=== PATIENT | female | born 1990 | race Caucasian/White ===

== ENCOUNTER 2018-09-10 11:40 | Outpatient (REF) | payer OTHER, SELFPAY ==
--- NOTE | 2018-09-10 10:00 | PAPFT_PTH ---
PATIENT: Emely Javier LOC: [facility] U#:[id number] AGE/SX: 28/F ROOM: RE09/10/[address]: SHELLI Morris : 1990 BED: DIS: 09/10/2018 SPEC #: [id number] RECD: 09/10/18 13:13 STATUS: ANUM REQ #: [id number] OLEG: 09/10/18 10:[address]: Kia Shipman DEPT: [facility] Cytology RECD BY: Aurea Dixon ENTERED: 09/10/18 13:13 SP TYPE: PAPFT OTHR DR: Maddy Licona V Tissues: 1 - CX/ENDOCX FOR PAP SMEARS Procedures: PAP THIN PREP/UVM Screening Comments: [id number] (UNSATISFACTORY FOR EVALUATION)
== END 2018-09-10 12:00 ==
LOC: LBN 11:40
PROVIDERS: PCP Family Medicine; Visit Provider Nurse Practitioner Family
DX: Z12.4 Encounter for screening for malignant neoplasm of cervix (principal)
CPT/HCPCS: 88142

== ENCOUNTER 2020-07-10 11:27 | Emergency (ER) | payer OTHER, SELFPAY ==
[2020-07-10] VITALS (39 sets, daily range): BP systolic 144–179; BP diastolic 82–112; PULSE 76–120; RESP 12–23; TEMP 36.7; O2SAT 96–100
--- NOTE | 2020-07-10 11:15 | RT.EKG_ITS ---
APPROVED REPORT Exam: Resting ECG Patient Location: E HR:87 bpm ECG Measurements Heart Rate 87 AXIS NE 129 P 40 QRSd 84 QRS 79 QT 341 T -6 QTc 411 Conclusion Sinus rhythm normal P axis Non specific t waves changes
--- NOTE | 2020-07-10 11:30 | DI.RAD_ITS ---
EXAM: XR CHEST 2V PA LATERAL CLINICAL HISTORY: Cooper pain TECHNIQUE: 2D digital imaging was performed. COMPARISON: No exams were available for comparison FINDINGS: MEDIASTINUM: Normal. HEART: Normal. PULMONARY VASCULATURE: Normal. LUNGS: Clear. Hyperinflation. PLEURAL SPACE: No pleural effusion or pneumothorax. BONE:Normal. OTHER FINDINGS:Normal. IMPRESSION: Hyperinflation. No acute pulmonary findings. DATA REPOSITORY: RADIATION DOSE DELIVERED:
[2020-07-10 11:53] LABS: Abs Immature Grans 0.05 10^3/uL (0.0-0.06); Absolute Basophil Count 0.05 10^3/uL (0.0-0.2); Absolute Eosinophil Count 0.13 10^3/uL (0.0-0.7); Absolute Lymphocyte Count 2.53 10^3/uL (1.2-3.4); Basophils % 0.4; HCT 41.9 % (36.0-46.0); HGB 13.8 g/dL (11.2-15.7); Immature Grans % 0.4; Lymphocytes % 19.5; MCH 29.5 pg (27.0-33.0); MCHC 32.9 % (32.0-36.0); MCV 89.5 fL (80-95); Monocytes % 5.6; Neutrophils % 73.1; Nucleated RBC 0 %; Platelet Count 313 10^3/uL (130-400); RBC 4.68 10^6/uL (3.93-5.22); RDW 12.9 % (11.7-14.6); RDW-SD 42.6 fL; WBC 12.96 10^3/uL (4.4-10.8)
--- NOTE | 2020-07-10 11:53 | ED.GENADUL_ITS ---
Discharge Plan Disposition Patient Disposition: HOME Condition: Improving Discharge Details Clinical Impression: Heart palpitations Primary Care Provider: Maddy Licona V ED Provider: Luis Alberto Sahu Home Meds and New Rx's Prescriptions: Continued norethindrone-e.estradiol-iron [09/08 (28)] 1 mg-20 mcg (21)/75 mg (7) tablet 1 tab PO DAILY Qty: 84 RF: 3 ibuprofen 600 MG tablet 600 mg PO Q6H PRN (Reason: Pain) Qty: 15 RF: 0 Discharge Instructions Instructions: Heart Palpitations (ED) Additional Instructions: Home to rest today. Small, frequent sips of fluids to maintain hydration. We will ask our care management team to arrange an outpatient follow-up for you in clinic. Wear the Holter monitor as instructed and then return to respiratory therapy as instructed. Return to the ER if you develop persistent chest pain, difficulty breathing, or any other acute concerns. Medical Decision Making Healthy, pleasant 30-year-old female presents with intermittent episodes of transient left-sided chest discomfort associate with palpitations over 1 week's time. She arrives to the ER afebrile, well-appearing, oxygenating 100%, mildly anxious with a pulse initially 120, blood pressure 179/112. Differential diagnosis includes benign palpitations, dehydration, electrolyte abnormality, must exclude ACS or occult PE particularly given patient's prescribed oral contraceptive and family history of clotting disorder. IV access established, fluids initiated. Patient referred for EKG, laboratory testing with urinalysis. Following fluids, pulse corrected to 90, blood pressure improved to 160/94. Labs reveal semielevated white blood cell count of 12, hematocrit 41, platelets 313. Chemistries reassuring, note of anion gap of 12, troponin negative x2, D- dimer negative at 184. Chest x-ray without acute findings. Patient remained improved. Unclear etiology of her palpitations. I will place her on a Holter monitor for 48 hours. We will ask care management to arrange outpatient follow-up for her in clinic with Dr. Licona. She is stable and improved at this time. Lab Data Lab results reviewed: Yes I reviewed the patient's lab results. Labs: Laboratory Results - last 24 hr 07/10/20 07/10/20 07/10/20 11:40 11:40 11:40 WBC 12.96 H RBC 4.68 Hgb 13.8 Hct 41.9 MCV 89.5 MCH 29.5 MCHC 32.9 RDW 12.9 Plt Count 313 MPV 9.0 Immature Gran % 0.4 Neutrophils % 73.1 Lymphocytes % 19.5 Monocytes % 5.6 Eosinophils % 1.0 Basophils % 0.4 Nucleated RBC % 0 Absolute Neutrophils 9.47 H Absolute Lymphocytes 2.53 Absolute Monocytes 0.73 Absolute Eosinophils 0.13 Absolute Basophils 0.05 PT 10.2 INR 1.0 APTT 24.5 D-Dimer 184 Sodium 138 Potassium 3.7 Chloride 102 Carbon Dioxide 23.3 Anion Gap 12.7 H BUN 11 Creatinine 0.79 Estimated GFR/1.73 m2 >= 60.00 Glucose 134 H Calcium 9.5 Magnesium 1.8 Total Bilirubin 0.3 AST 14 L ALT 18 Alkaline Phosphatase 34 L Troponin I < 0.05 Total Protein 8.8 H Albumin 4.5 TSH 0.52 HPI General Mode of arrival: ambulatory . Date/Time Provider Initiated Documentation: 07/10/20 11:28 . Limitations to Documentation: no limitations . Information obtained by: patient . History of Present Illness 30 year old F presents to the emergency department with the chief complaint of Palpitations, described as moderate, Quality is described as dull, and is localized to the chest. Patient reports no radiation. Patient started experiencing this hour(s) and it has been intermittent. No relieving factors improve symptom(s), No exacerbating factors reported . Patient notes chest pain; denies cough, fever/chills, headaches, loss of appetite, nausea/vomiting and syncope. Patient did receive the following treatments prior to arrival, none Related Data Home Medications Medication Instructions Recorded Confirmed ibuprofen 600 mg PO Q6H PRN #15 tab 09/29/16 09/10/18 norethindrone 1 mg-ethinyl 1 tab PO DAILY #84 tab 09/10/18 09/10/18 estradiol 20 mcg (21)-iron 75 mg (7) tablet Previous Rx's Medication Instructions Recorded ibuprofen 600 mg PO Q6H PRN #15 tab 09/29/16 norethindrone 1 mg-ethinyl 1 tab PO DAILY #84 tab 09/10/18 estradiol 20 mcg (21)-iron 75 mg (7) tablet Allergies Allergy/AdvReac Type Severity Reaction Status Date / Time latex Allergy yeast Verified 09/10/18 10:25 [facility] Allergy red rash Verified 09/10/18 10:25 General Stated Complaint: Palpitatns AYANA: 2 Review of Systems Narrative: On OCPs. States she believes she has a family history of factor V Leiden. Sudden early of her uncle. No travel, no weight change. Normal bowel movements. 8 systems reviewed and otherwise negative [facility] Medical History Asthma Candidiasis of vagina While IUD was in place. Resolved after IUD removed. Contraception 2009 Mirena IUD. 2013 removed. 2014 restarted OCPs. will use condoms for STI prevention. Depression Social History Smoking/Tobacco Use Status: Former Tobacco Use Smoking risk assessment performed?: Yes Alcohol Intake: current Alcohol Intake frequency: a few times a month Alcohol type: beer Drug use: Daily Substance use type: marijuana current occupation: [employer] in [place] Do you feel safe at home: Yes Do you feel safe in your relationship?: Yes History History 0 Para Hx # Term Pregnancies Multiple births Hx # Pregnancies Ectopic pregnancies AB induced Hx Number of Living Children AB spontaneous Exam Narrative Exam Narrative: GEN: awake, alert, oriented 3. Pleasant, well groomed, interactive. HEAD: Normocephalic, atraumatic ENT: Mucous membranes moist, oropharynx unremarkable, External ear exam unremarkable EYES: PERRL, EOMI NECK: Full ROM, no RANDY, no menigismus CHEST/RESP: Nontender, clear to auscultation bilateral, no wheeze/rhonchi/rales CARDIOVASCULAR: Regular and tachycardic, no murmur, rub kalie. 2+ Rad pulse bilateral ABDOMEN: Soft, nontender, no mass. +Bowel sounds EXT: Full ROM, no edema, no rash Neuro: Grossly normal neurologic exam, conversant, interactive. Psych: Speech fluent, thoughts congruent, affect slightly anxious Course Vital Signs Vital signs: Vital Signs Temperature 36.7 C 07/10/20 11:30 Pulse 120 H 07/10/20 11:30 Respiratory Rate 14 07/10/20 11:30 Blood Pressure 179/112 H 07/10/20 11:30 Pulse Oximetry 100 07/10/20 11:30 Temperature 36.7 C 07/10/20 11:30 Temperature Source Temporal Artery Scan 07/10/20 11:30 Pulse 120 H 07/10/20 11:30 Respiratory Rate 14 07/10/20 11:30 Respiratory Effort Non-Labored 07/10/20 11:34 Blood Pressure 179/112 H 07/10/20 11:30 Blood Pressure Position Sitting 07/10/20 11:30 Pulse Oximetry 100 07/10/20 11:30 Oxygen Delivery Method Room Air 07/10/20 11:30 Oxygen Flow Rate 0 07/10/20 11:30 Pain Level 0 07/10/20 11:30
[2020-07-10 11:55] LABS: Absolute Monocyte Count 0.73 10^3/uL (0.1-0.8); Absolute Neutrophil Count 9.47 10^3/uL (1.2-6.7)
[2020-07-10] MEDS: Normal Saline 1,000 ML 1000 ML IV ×2 (12:00→13:00)
[2020-07-10 12:08] LABS: PTT Activated 24.5 sec (21.0-27.5); Prothrombin Time 10.2 sec (9.3-11.0)
[2020-07-10 12:15] LABS: ALT 18 U/L (14-59); AST 14 U/L (15-37); Albumin 4.5 g/dL (3.4-5.0); Alkaline Phosphatase 34 U/L (46-116); Anion Gap 12.7 mmol/L (3-11); BUN 11 mg/dL (7-18); Bilirubin, Total 0.3 mg/dL (0.2-1.0); CO2 23.3 mmol/L (21.0-32.0); CREATININE 0.79 mg/dL (0.55-1.02); Calcium 9.5 mg/dL (8.5-10.1); Chloride 102 mmol/L (98-107); Glucose 134 mg/dL (74-106); Magnesium 1.8 mg/dL (1.8-2.4); Potassium 3.7 mmol/L (3.5-5.1); Sodium 138 mmol/L (136-145); TSH 0.52 uIU/mL (0.36-3.74); Total Protein 8.8 g/dL (6.4-8.2); Troponin I < 0.05 ng/mL (<0.06)
[2020-07-10 12:24] LABS: D-Dimer 184 ng/mlFEU (<500)
--- NOTE | 2020-07-10 12:34 | DI.VRAD_ITS ---
PROCEDURE INFORMATION: Exam: XR Chest, 2 Views Exam date and time: 07/10/2020 12:28 PM Age: 30 years old Clinical indication: Chest pain and chest pressure TECHNIQUE: Imaging protocol: XR of the chest Views: 2 views. COMPARISON: No relevant prior studies available. FINDINGS: Lungs: The lungs are hyperaerated and hyperlucent. No focal infiltrates. Pleural space: Unremarkable. No pleural effusion. No pneumothorax. Heart/Mediastinum: Unremarkable. No cardiomegaly. Bones/joints: Unremarkable. IMPRESSION: Hyperaeration raises concern for reactive airway disease. Dictated and Authenticated by: Amy Hicks MD. Ordering:VINITA Sahu MD
[2020-07-10 13:09] LABS: Bilirubin Negative (Negative); Blood Small (Negative); Clarity Clear (Clear); Glucose Negative (Negative); Ketones Negative (Negative); Leukocyte Esterase Negative (Negative); Nitrite Negative (Negative); Urobilinogen 0.2 EU/dL (Up TO 0.2)
[2020-07-10 13:21] LABS: Bacteria Few HPF (Negative); C & S Indicated? No; Casts Negative LPF (Negative); Crystals Negative HPF (Negative); Epithelial Cells Few HPF (Negative); Mucus Negative (Negative); WBC 0-2 HPF (0-5)
--- NOTE | 2020-07-10 14:30 | RT.EKG_ITS ---
APPROVED REPORT Exam: Resting ECG Patient Location: E HR:88 bpm ECG Measurements Heart Rate 88 AXIS DE 154 P 56 QRSd 86 QRS 74 QT 362 T 27 QTc 439 Conclusion Sinus rhythm...normal P axis, V-rate 60- 99
--- NOTE | 2020-07-10 15:03 | NUR.NOTE ---
Referral faxed to [facility]. Dr. Licona.Nursing Note:
[2020-07-10 15:36] LABS: Troponin I < 0.05 ng/mL (<0.06)
== END 2020-07-10 15:56 | disposition home or self-care (01) ==
PROVIDERS: Emergency Provider Emergency Medicine; PCP Family Medicine
DX: R00.2 Palpitations (principal); R07.89 Other chest pain; Z83.2 Family history of diseases of the blood and blood-forming organs and certain disorders involving the immune mechanism; Z79.3 Long term (current) use of hormonal contraceptives
CPT/HCPCS: 36415; 80053; 93005; 96361; 99285; 71046; 81003; 81015; 83735; 84443; 84484; 85025; 85379; 85610; 85730; 93010; 93225

== ENCOUNTER 2020-07-10 15:10 | Outpatient (RCR) | payer OTHER, SELFPAY ==
--- NOTE | 2020-07-10 15:15 | HOLTER_ITS ---
APPROVED REPORT Exam Type: HOLTER MONITOR APPLICATION Reason for Test: PALPITATIONS Patient Location: O Conclusion This Holter monitor recorded for 28 hours and 21 minutes Rhythm throughout was sinus. Average heart rate was 92. Minimum was 64 and maximum 161 There were no atrial or ventricular dysrhythmias There was no atrial fibrillation, no pauses greater than 3 seconds, no high-grade AV block Patient reported that she had no symptoms
== END 2020-07-19 23:59 | disposition home or self-care (01) ==
LOC: RT 15:10
PROVIDERS: PCP Family Medicine; Visit Provider Emergency Medicine
DX: R00.2 Palpitations (principal)
CPT/HCPCS: 93225; 93226

== ENCOUNTER 2021-01-14 14:33 | Outpatient (CLI) | payer MEDICAID, SELFPAY ==
--- NOTE | 2021-01-14 14:15 | DI.RAD_ITS ---
Exam(s) XR HIP RT COMPLETE AP PELVIS EXAM: XR HIP RT COMPLETE AP PELVIS CLINICAL HISTORY: RT HIP PAIN, M25.551 TECHNIQUE: COMPARISON: US PELVIS TRANSVAG from 03/30/2016 FINDINGS: Two views were obtained. There is tiny ossicle adjacent to the aspect of the acetabulum the right wh ich may represent a small accessory ossicle. No other bony or soft tissue seen. IMPRESSION: RADIATION DOSE DELIVERED: Total DLP
== END 2021-01-14 14:53 ==
PROVIDERS: PCP Family Medicine; Visit Provider Physician Assistant Medical
DX: M25.551 Pain in right hip (principal)
CPT/HCPCS: 73502

== ENCOUNTER 2021-07-23 13:21 | Outpatient (REF) | payer MEDICAID, SELFPAY | END 2021-07-23 13:22 | disposition home or self-care (01) | LOC: LBN 13:21 | PROVIDERS: PCP Family Medicine; Visit Provider Nurse Practitioner Family | DX: Z11.6 Encounter for screening for other protozoal diseases and helminthiases (principal) | CPT/HCPCS: 87177 ==

== ENCOUNTER 2021-11-25 17:32 | Emergency (ER) | payer MEDICAID, SELFPAY ==
[2021-11-25 17:36] VITALS: BP 178/113; PULSE 127; RESP 18; TEMP 36.3; O2SAT 99
--- NOTE | 2021-11-25 18:29 | W.ED.GENAD ---
Discharge Plan Disposition Patient Disposition: HOME Condition: Improving Discharge Details Clinical Impression: Chronic leg pain Primary Care Provider: Maddy Licona V ED Provider: Vincenzo Dickson Home Meds and New Rx's Prescriptions: New lidocaine [Lidoderm] 5 % adhesive patch,medicated 1 patch topical DAILY PRN (Reason: pain) Qty: 3 0RF Rx Instructions: leave on most painful area for up to 12 hrs cyclobenzaprine 5 mg tablet 5 mg PO DAILY PRN (Reason: muscle spasm) Qty: 5 0RF No Action norethindrone-e.estradiol-iron [09/08 (28)] 1 mg-20 mcg (21)/75 mg (7) tablet 1 tab PO DAILY Qty: 84 3RF ibuprofen 600 MG tablet 600 mg PO Q6H PRN (Reason: Pain) Qty: 15 0RF hydroxyzine HCl 50 mg tablet 0RF Label Comments: TAKE 1/2 TO 1 TABLET BY MOUTH THREE TIMES A DAY NEEDED melatonin 10 mg tablet, sublingual 0RF Label Comments: Place 1 tablet under tongue at bedtime Discharge Instructions Instructions: Leg Pain (ED) Additional Instructions: Please see your primary care doctor as scheduled. Please return the emergency room for any worsening symptomatology. Medical Decision Making 31-year-old female presents with subacute femoral stress fracture and poorly controlled pain, has been taking consistent NSAIDs for some time, has noticed that her blood pressure has been out of control over the past several days to a week, no chest pain no shortness of breath, normal voice tolerating secretions, ambulatory for range of motion no external signs of trauma. Consider NSAID induced nephropathy versus hypertension related to pain, no evidence of anaphylaxis or allergic reaction at this time, low suspicion for any infection. Will send screening labs to assess creatinine. Will dose Percocet Lidoderm and cyclobenzaprine close reassessment and labs disposition pending results. Patient has follow-up on Sunday with primary care 20: 16 patient resting comfortably no acute distress ambulatory without assistance. Creatinine normal. Patient counseled regarding appropriate use of NSAIDs; will provide Lidoderm and cyclobenzaprine prescription. Patient has appointment on Sunday with your primary care. Given return precautions as needed. HPI General Date/Time Provider Initiated Documentation: 11/25/21 18:16. HPI Narrative: 31-year-old female stress fracture right femur subacute was given tramadol over the last week and believes that she is having allergic reaction to it wakes up feeling as if her throat is tightening or voice changes in the morning, no current voice changes throat tightness or respiratory symptoms no nausea no vomiting no presyncope. Endorse that she cannot get her pain under control. Deep tissue massage earlier today. Related Data Home Medications Medication Instructions Recorded Confirmed ibuprofen 600 mg tablet 600 mg PO Q6H PRN #15 tab 09/29/16 09/10/18 norethindrone 1 mg-ethinyl 1 tab PO DAILY #84 tab 09/10/18 09/10/18 estradiol 20 mcg (21)-iron 75 mg (7) tablet (09/08 ()) cyclobenzaprine 5 mg tablet 5 mg PO DAILY PRN #5 tab 11/25/21 hydroxyzine HCl 50 mg tablet mg 11/25/21 11/25/21 lidocaine 5 % topical patch 1 patch TOPICAL DAILY PRN #3 ea 11/25/21 (Lidoderm) melatonin 10 mg sublingual tablet mg 11/25/21 11/25/21 Previous Rx's Medication Instructions Recorded ibuprofen 600 mg tablet 600 mg PO Q6H PRN #15 tab 09/29/16 norethindrone 1 mg-ethinyl 1 tab PO DAILY #84 tab 09/10/18 estradiol 20 mcg (21)-iron 75 mg (7) tablet (09/08 ()) cyclobenzaprine 5 mg tablet 5 mg PO DAILY PRN #5 tab 11/25/21 lidocaine 5 % topical patch 1 patch TOPICAL DAILY PRN #3 ea 11/25/21 (Lidoderm) Allergies Allergy/AdvReac Type Severity Reaction Status Date / Time latex Allergy yeast Verified 11/25/21 17:42 infections nicotine [From Nicoderm [facility]] Allergy red rash Verified 11/25/21 17:42 General Stated Complaint: GenMedical AYANA: 4 Review of Systems Narrative: Review of Systems Constitutional: negative Eyes: negative ENT: negative Cardiovascular: negative Respiratory: negative Gastrointestinal: negative : negative Musculoskeletal: Leg pain Skin: negative Neurologic: negative Psych: negative PFSH All Active Problems (Updated 11/25/21 @ 20:16 by Vincenzo Dickson MD) Chronic leg pain (Acute) Depression (Acute) Contraception (Acute) 2009 Mirena IUD. 2013 removed. 2014 restarted OCPs. will use condoms for STI prevention. Asthma (Acute) Medical History Asthma Candidiasis of vagina While IUD was in place. Resolved after IUD removed. Contraception 2009 Mirena IUD. 2013 removed. 2015 restarted OCPs. will use condoms for STI prevention. Depression Social History Smoking/Tobacco Use Status: Former Tobacco Use Smoking risk assessment performed?: Yes Alcohol Intake: current Alcohol Intake frequency: a few times a month Alcohol type: beer Drug use: Daily Substance use type: marijuana current occupation: [employer] in [place] Do you feel safe at home: Yes Do you feel safe in your relationship?: Yes History History 0 Para Hx # Term Pregnancies Multiple births Hx # Pregnancies Ectopic pregnancies AB induced Hx Number of Living Children AB spontaneous Exam Narrative Exam Narrative: Physical Examination General: alert, awake, cooperative, resting comfortably, no acute distress HEENT: normocephalic, atraumatic; PERRL, EOM intact, conjunctiva normal; no nasal discharge; moist mucous membranes, oral and pharyngeal mucosa normal, tolerating secretions; normal voice no stridor Neck: supple, trachea midline; full ROM Chest: normal to inspection Respiratory: normal respiratory effort, speaking in full sentences, clear to auscultation, no wheezing, rales or rhonchi Cardiac: regular rate, regular rhythm, S1S2 intact, no murmurs rubs or gallops GI: abdomen soft, non-tender, non-distended; no palpable mass or hepatosplenomegaly Skin: no lesions, rashes or trauma appreciated Neuro: AAOx3, normal speech, moving all extremities Extremities: Range of motion intact, no external deformity, ambulatory with out assistance Psych: Appropriate mood and affect Course Vital Signs Vital signs: Vital Signs Temperature 36.3 C L 11/25/21 17:36 Pulse 127 H 11/25/21 17:36 Respiratory Rate 18 11/25/21 17:36 Blood Pressure 178/113 H 11/25/21 17:36 Pulse Oximetry 99 11/25/21 17:36 Temperature 36.3 C L 11/25/21 17:36 Temperature Source Skin 11/25/21 17:36 Pulse 127 H 11/25/21 17:36 Respiratory Rate 18 11/25/21 17:36 Respiratory Effort 11/25/21 17:43 Blood Pressure 178/113 H 11/25/21 17:36 Blood Pressure Position Supine 11/25/21 17:36 Pulse Oximetry 99 11/25/21 17:36 Oxygen Delivery Method Room Air 11/25/21 17:36 Oxygen Flow Rate 0 11/25/21 17:36 Pain Level 8 11/25/21 17:36 PAWSS Have you Been Recently Intoxicated or Drunk Within the Last 30 days?: No Have you Ever Experienced Previous Episodes of Alcohol Withdrawal?: No Have you ever Experienced Withdrawal Seizures?: No Have you ever Experienced Delirium Tremens(DT)s?: No Have you ever undergone Alcohol Rehabilitation Treatment (i.e, inpt ot outpatient treatment programs)?: No Have you ever Experienced Blackouts?: No Have you ever Combined Alcohol with other Downers within the last 90 days?: No Have you ever Combined Alcohol with any other Substance of Abuse during the last 90 days?: No Positive Blood Alcohol level on Presentation? [PCS.BAL]: No Evidence of Increased Autonomic Activity (i.e. HR>120, tremor, sweating, agitation, nausea)?: No Result: 0
[2021-11-25 19:30] VITALS: RESP 16
[2021-11-25] MEDS: Lidocaine 5% Patch 1 PATCH TP (19:39)
[2021-11-25] MEDS: Cyclobenzaprine 10 MG TAB PO (19:40)
[2021-11-25] MEDS: oxyCODONE 5 mg/Acetaminophen 325 mg TAB 1 TAB PO (19:40)
[2021-11-25] MEDS: Ondansetron O.D.T. 4 MG TABEF PO (19:40)
[2021-11-25 19:48] LABS: Abs Immature Grans 0.04 10^3/uL (0.0-0.06); Absolute Basophil Count 0.07 10^3/uL (0.0-0.2); Absolute Eosinophil Count 0.33 10^3/uL (0.0-0.7); Absolute Lymphocyte Count 3.49 10^3/uL (1.2-3.4); Absolute Monocyte Count 0.62 10^3/uL (0.1-0.8); Absolute Neutrophil Count 6.17 10^3/uL (1.2-6.7); Basophils % 0.7; Eosinophils % 3.1; HCT 38.9 % (36.0-46.0); HGB 12.8 g/dL (11.2-15.7); Immature Grans % 0.4; Lymphocytes % 32.6; MCH 29.1 pg (27.0-33.0); MCHC 32.9 % (32.0-36.0); MCV 88.4 fL (80-95); MPV 9.1 fL (8.0-11.0); Monocytes % 5.8; Neutrophils % 57.4; Nucleated RBC 0 %; Platelet Count 311 10^3/uL (130-400); RDW-SD 42.4 fL; WBC 10.72 10^3/uL (4.4-10.8)
[2021-11-25 20:10] LABS: ALT 21 U/L (14-59); AST 11 U/L (15-37); Albumin 3.9 g/dL (3.4-5.0); Alkaline Phosphatase 30 U/L (46-116); Anion Gap 7.7 mmol/L (3-11); BUN 11 mg/dL (7-18); Bilirubin, Total 0.1 mg/dL (0.2-1.0); CO2 25.3 mmol/L (21.0-32.0); CREATININE 0.7 mg/dL (0.55-1.02); Calcium 8.9 mg/dL (8.5-10.1); Chloride 104 mmol/L (98-107); Glucose 97 mg/dL (74-106); Potassium 4.2 mmol/L (3.5-5.1); Sodium 137 mmol/L (136-145); Total Protein 7.9 g/dL (6.4-8.2)
[2021-11-25 20:26] VITALS: BP 178/113; PULSE 127; RESP 16; TEMP 36.3; O2SAT 99
== END 2021-11-25 20:27 | disposition home or self-care (01) ==
PROVIDERS: Emergency Provider Emergency Medicine; PCP Family Medicine
DX: M79.604 Pain in right leg (principal); M84.351S Stress fracture, right femur, sequela; G89.29 Other chronic pain
CPT/HCPCS: 80053; 99283; 85025

== ENCOUNTER 2021-12-02 09:11 | Outpatient (REF) | payer MEDICAID, SELFPAY ==
[2021-12-02 20:11] LABS: Calculated LDL 214 mg/dL (<100); Cholesterol 291 mg/dL (<200); HDL Cholesterol 59 mg/dL (40-60); TSH 1.17 uIU/mL (0.36-3.74); Triglyceride 91 mg/dL (<150)
[2021-12-02 20:38] LABS: FREE T4 0.95 ng/dL (0.76-1.46)
[2021-12-03 22:45] LABS: T3,Free 3.7 pg/mL (2.8-5.3)
[2021-12-05 09:51] LABS: Prolactin 18.2 ng/mL (See Note)
== END 2021-12-02 09:12 | disposition home or self-care (01) ==
LOC: NCHCN 09:11
PROVIDERS: PCP Family Medicine; Visit Provider Family Medicine
DX: L65.9 Nonscarring hair loss, unspecified (principal); Z13.220 Encounter for screening for lipoid disorders; Z00.00 Encounter for general adult medical examination without abnormal findings
CPT/HCPCS: 80061; 84146; 84439; 84443; 84481

== ENCOUNTER 2021-12-12 16:08 | Outpatient (REF) | payer MEDICAID, SELFPAY ==
--- NOTE | 2021-12-12 15:30 | PAPFT_PTH ---
PATIENT: Emely Javier LOC: [facility] U#:[id number] AGE/SX: 31/F ROOM: RE12/12/[address]: SHELLI Morris : 1990 BED: DIS: 12/12/2021 SPEC #: [id number] RECD: 12/12/21 18:00 STATUS: ANUM REQ #: [id number] OLEG: 12/12/21 15:[address]: Kia Shipman DEPT: [facility] Cytology RECD BY: Aurea Dixon ENTERED: 12/12/21 18:00 SP TYPE: PAPFT OTHR DR: Maddy Licona V Tissues: 1 - CX/ENDOCX FOR PAP SMEARS Procedures: PAP THIN PREP/UVM Screening HPV DNA PROBE Comments: [id number]
[2021-12-14 14:14] LABS: Chlamydia Result Negative (Negative); GC Result Negative (Negative)
== END 2021-12-12 16:09 | disposition home or self-care (01) ==
LOC: LBN 16:08
PROVIDERS: PCP Family Medicine; Visit Provider Nurse Practitioner Family
DX: Z11.3 Encounter for screening for infections with a predominantly sexual mode of transmission (principal); Z12.4 Encounter for screening for malignant neoplasm of cervix; Z11.51 Encounter for screening for human papillomavirus (HPV)
CPT/HCPCS: 87491; 87591; 88142; 87624

== ENCOUNTER 2022-01-31 02:14 | Outpatient (CLI) | payer MEDICAID, SELFPAY | END 2022-01-31 02:15 | disposition home or self-care (01) | LOC: LBO 02:14 | PROVIDERS: PCP Family Medicine; Visit Provider Obstetrics & Gynecology ==

== ENCOUNTER 2022-01-31 02:30 | Outpatient (CLI) | payer MEDICAID, SELFPAY ==
[2022-01-31 15:44] LABS: Abs Immature Grans 0.03 10^3/uL (0.0-0.06); Absolute Basophil Count 0.07 10^3/uL (0.0-0.2); Absolute Lymphocyte Count 3.57 10^3/uL (1.2-3.4); Absolute Monocyte Count 0.87 10^3/uL (0.1-0.8); Basophils % 0.6; Eosinophils % 3.1; HCT 37.1 % (36.0-46.0); HGB 12.5 g/dL (11.2-15.7); Immature Grans % 0.3; Lymphocytes % 32.1; MCH 29.2 pg (27.0-33.0); MCHC 33.7 % (32.0-36.0); MCV 87 fL (80-95); MPV 9.3 fL (8.0-11.0); Monocytes % 7.8; Neutrophils % 56.1; Platelet Count 277 10^3/uL (130-400); RBC 4.28 10^6/uL (3.93-5.22); RDW 12.9 % (11.7-14.6); RDW-SD 40.8 fL; WBC 11.12 10^3/uL (4.4-10.8)
[2022-01-31 15:46] LABS: Absolute Eosinophil Count 0.34 10^3/uL (0.0-0.7); Absolute Neutrophil Count 6.24 10^3/uL (1.2-6.7)
[2022-01-31 16:11] LABS: Source Nasal/Nares
[2022-01-31 22:35] LABS: COVID-19 PCR Negative (Negative)
== END 2022-01-31 02:31 | disposition home or self-care (01) ==
LOC: LBO 02:30
PROVIDERS: PCP Family Medicine; Visit Provider Obstetrics & Gynecology
DX: Z30.09 Encounter for other general counseling and advice on contraception (principal); D68.51 Activated protein C resistance; Z20.822 Contact with and (suspected) exposure to COVID-19; Z01.818 Encounter for other preprocedural examination; Z01.812 Encounter for preprocedural laboratory examination
CPT/HCPCS: 36415; 86850; 86900; 86901; 87635; 85025

== ENCOUNTER 2022-02-02 08:46 | Day surgery (SDC) | payer MEDICAID, SELFPAY ==
[2022-02-02] VITALS (11 sets, daily range): BP systolic 106–177; BP diastolic 70–95; PULSE 52–87; RESP 16–20; TEMP 36.1–36.6; O2SAT 98–100; BMI 25.9
--- NOTE | 2022-02-02 07:11 | ANES.PREOP_ITS ---
General Info Date of Service Date Performed: 02/02/22 Height: 5 ft 2 in Weight: 64.41 kg Body Mass Index (BMI): 25.9 Surgical Procedure: Operation Date: 02/02/22 11:55 Proposed Procedure Side Surgeon p Salpingectomy Laparoscopic Bilateral Karen Arellano DO Meds Allergies and Home Medications Allergies Allergy/AdvReac Type Severity Reaction Status Date / Time tramadol Allergy Severe Other (See Verified 02/02/22 09:07 Comment) latex Allergy yeast Verified 02/02/22 09:06 infections nicotine [From [facility]] Allergy red rash Verified 02/02/22 09:06 Home Medication Medication Instructions Recorded hydroxyzine HCl 50 mg tablet 50 mg PO DAILY 11/25/21 lidocaine 5 % topical patch 1 patch topical DAILY PRN pain #3 11/25/21 (Lidoderm) ea melatonin 10 mg sublingual tablet 10 mg PO HS 11/25/21 albuterol sulfate 90 mcg/actuation 2 puff inhalation Q6H PRN 12/12/21 aerosol inhaler cetirizine 10 mg tablet (Zyrtec) 10 mg PO DAILY PRN 12/12/21 oxycodone-acetaminophen 5 mg-325 1 tab PO Q8H PRN 12/12/21 mg tablet (Percocet) melatonin 3 mg tablet 6 mg PO HS PRN 02/02/22 Current Visit Medications: Current Medications Generic Name Dose Route Start Last Admin Trade Name Freq PRN Reason Stop Dose Admin Ringer's Solution 1,000 mls @ 125 mls/hr 02/02/22 06:00 IV 03/03/22 23:59 INFUSION SHAMIR IV Miscellaneous Supplies 1 each 02/02/22 06:00 Iv Access IV 03/03/22 23:59 DIRECTED SHAMIR Sodium Chloride 0 ml 02/02/22 06:00 Normal Saline Flush 10 Ml Syr IV 03/03/22 23:59 PRN PRN Sodium Chloride 0 ml 02/02/22 06:00 Normal Saline 10 Ml Vial IJ 03/03/22 23:59 DIRECTED PRN Sterile Water 0 ml 02/02/22 06:00 Water,Injection,Sterile 10 Ml Vial IJ 03/03/22 23:59 DIRECTED PRN PFSH Active Problems Active Problems: Problem Status Onset Code Depression Contraception Asthma Hypertension I10 Factor 5 Leiden mutation, heterozygous D68.51 Unwanted fertility Z30.09 Vaginal irritation N89.8 Medical History Medical History Candidiasis of vagina While IUD was in place. Resolved after IUD removed. High cholesterol Stress fracture of femur Per pt. has had it for over a year Surgical History Surgical History Hx of tonsillectomy [place] teeth removed Tobacco Smoking/Tobacco Use Status: Former Tobacco Use Alcohol Alcohol Intake: current Alcohol intake frequency: a few times a month Alcohol type: beer Substance Use Substance use: Daily Substance use type: marijuana Prental History History 0 Para Hx # Term Pregnancies Multiple births Hx # Pregnancies Ectopic pregnancies AB induced Hx Number of Living Children AB spontaneous Vital Signs and Lab Results Lab Results Blood Type / Crossmatch: Patient ABO/Rh A Positive 01/31/22 Antibody Screen NEGATIVE 01/31/22 Complete Blood Count: White Blood Count 11.12 10^3/uL (4.4-10.8) H 01/31/22 15:30 Red Blood Count 4.28 10^6/uL (3.93-5.22) 01/31/22 15:30 Hemoglobin 12.5 g/dL (11.2-15.7) 01/31/22 15:30 Hematocrit 37.1 % (36.0-46.0) 01/31/22 15:30 Platelet Count 277 10^3/uL (130-400) 01/31/22 15:30 Complete Metabolic Panel: No Data to Display Liver Function Panel: No Data to Display Coagulation Panel: No Data to Display Cardiac Panel: No Data to Display Arterial Blood Gas: No Data to Display Venous Blood Gas: No Data to Display Pancreas Panel: No Data to Display Thyroid Panel: No Data to Display Infectious Disease: Coronavirus (COVID-19)(PCR) Negative (Negative) 01/31/22 15:00 Coronavirus 2019 Source Nasal/Nares 01/31/22 15:00 Blood Cultures: No Data to Display Toxicology Panel: No Data to Display Panel: No Data to Display Imaging and Studies Imaging and Studies Study information below may be from another EMR and interpreted by another provider. Please see original notes in EMR for more complete details. EKG Summary: Sinus rhythm...normal P axis, V-rate 60- 99 Anesthesia Assessment and Plan Anesthesia History Personal History: No History of Anesthesia Complications Family History: No Family History of Anesthesia Complications Exercise Tolerance Exercise Tolerance: Metabolic Equivalents>4 Pertinent Negatives Pertinent Negatives: No Symptoms of GERD, No Major Cardiovascular Symptoms or Complaints, No Major Pulmonary Symptoms or Complaints and No History of CVA/TIA Cardiac & Pulmonary Exam Cardiac Exam: Normal S1/S2 Heart Sounds Pulmonary Exam: Clear Bilateral Breath Sounds Implantable Cardiac Device Does patient have a Pacemaker or an ICD?: No Airway Exam Known Difficult Airway: No Mallampati Class: 1 Mouth Opening: Normal (> 3cm) Thyromental Distance: Greater than 3 cm Neck Range of Motion: Full ROM Neck Circumference: Normal Teeth Condition: Normal Dentition ASA Classification ASA Score: ASA 2 Emergency Case?: No NPO Status NPO Status: NPO Clears >2 hours, Solids >8 hours Status Status: Negative HCG Anesthesia Plan Resuscitation Status: Full Code Anesthesia Technique: General Anesthesia Airway Planned: Endotracheal Tube Monitors Used: Standard Monitors Preoperative Comments:: 31 yo female for lap slaping, otherwise healthy. very anxious. premed with midaz.
[2022-02-02] MEDS: Lactated Ringers 1,000 ML 125 ML IV (09:32)
--- NOTE | 2022-02-02 12:08 | FALL_PTH ---
PATIENT: Emely Javier LOC: [facility] U#:[id number] AGE/SX: 31/F ROOM: RE02/02/[address]: Karen Arellano DO : 1990 BED: DIS: 02/02/2022 SPEC #: [id number] RECD: 02/02/22 13:04 STATUS: ANUM RE #: [id number] OLEG: 02/02/22 12:[address]: Karen Arellano DEPT: Surgical Specimen RECD BY: Aurea Dixon ENTERED: 02/02/22 13:06 SP TYPE: Fall OTHR DR: Maddy Licona V Tissues: 1 - FALLOPIAN TUBE (STERILIZATION) 2 - FALLOPIAN TUBE (STERILIZATION) Procedures: GROSS AND MICRO LEVEL 2 Comments: [id number]
--- NOTE | 2022-02-02 12:29 | W.PM.OP ---
Date of service: 02/02/22 Time of Service: 12:30 Operative Note Operative Note DATE OF PROCEDURE: 02/02/22 PRE-OP DIAGNOSIS: Undesired fertility POST-OP DIAGNOSIS: same PROCEDURE: Laparoscopic bilateral salpingectomy SURGEON: Karen Arellano ASSISTING SURGEON: Leticia Gao ANESTHESIA TYPE: General LMA/ETT Refer to Anesthesia Record ESTIMATED BLOOD LOSS: 10 PATHOLOGY: other (1. Right fallopian tube 2. Left fallopian tube) COMPLICATIONS: None Patient was transported to: PACU Patient's condition: stable Indications: Undesired fertility Procedure Description: Patient was taken to the operating suite after full informed consent has been obtained. She was placed in dorsal supine position and general anesthesia administered via endotracheal intubation with ease. She is then placed in modified dorsolithotomy position and prepped and draped in usual sterile fashion with her legs in yellowfin stirrups. She had pneumatic compression stockings for prevention of thromboembolism. Exam under anesthesia revealed a uterus that is midline and mobile. Straight catheterization was performed for approximately 50 cc of clear yellow urine. Speculum was inserted into the vaginal vault. Single-tooth tenaculum uterus was used on the cervix for uterine manipulation. At this point attention was turned to the abdomen where after infiltration with quarter percent Marcaine a small infraumbilical skin incision was made and a varies needle inserted directly with elevation of the anterior abdominal wall. Pneumoperitoneum created with a maximum pressure of 15 mmHg of CO2 gas. Once pneumoperitoneum was created a bladeless 12 mm Optiview port was placed under direct visualization into the abdomen. There is no evidence of intra-abdominal or pelvic trauma. A second and third right and left lower quadrant trocar site were placed after infiltration of quarter percent Marcaine. At this point attention was turned to the left fallopian tube which was elevated, cautery transected, and removed from the abdomen via the 12 mm port. Similar procedure was carried out on the right fallopian tube which was also normal and elevated, and cautery tried activity. At this point inspection of all pedicles was noted to have good hemostasis. The remainder of the abdomen and pelvis were inspected and found to be atraumatic and free of pathology. Appendix was visualized and appeared normal. At this point procedure was terminated. Pneumoperitoneum released. All instruments removed from the abdomen. Fascial incision was closed using 0 Vicryl suture in a simple interrupted fashion. Skin edges were reapproximated with 4-0 Monocryl suture and Steri-Strips were placed. Sterile dressing was placed over them. Tenaculum was removed from the anterior lip of the cervix. Patient was returned to the dorsal supine position and awoke from anesthesia with ease. Findings: #1. Normal tubes, ovaries and uterus Complications: None apparent Fluids: Crystalloid per anesthesia Pathology: 1. Right fallopian tube 2. Left fallopian tube
[2022-02-02] MEDS: oxyCODONE 5 mg/Acetaminophen 325 mg TAB PO ×2 (13:45→14:33)
--- NOTE | 2022-02-02 15:08 | W.ANESPOSTOP ---
Postoperative Evaluation Date, Time and Location Date Performed: 02/02/22 Time Performed: 15:08 Patient Location: Day Surgery Unit Vital Signs Most Recent Imported Vital Signs: Most Recent Vital Signs Temp Pulse Resp BP Pulse Ox 36.1 C L 64 16 172/95 H 100 02/02/22 14:30 02/02/22 14:30 02/02/22 14:30 02/02/22 14:30 02/02/22 14:30 Pain Score Most Recent Pain Score: Most Recent Pain Score Pain Level 3 02/02/22 14:30 Assessment Mental Status: Awake (Alert & Oriented to Patient Baseline) Airway and Respiratory Function: Patent airway with normal (patient baseline) respiratory exam Cardiovascular Function: Hemodynamically Stable Hydration Status: Adequately Hydrated Nausea & Vomiting: No Nausea or Vomiting Pain: Pain is tolerable per patient Peripheral Nerve Block: Patient did not receive a nerve block
== END 2022-02-02 15:51 | disposition home or self-care (01) ==
PROVIDERS: PCP Family Medicine; Visit Provider Obstetrics & Gynecology
PROC: (CPT 58661; principal; 2022-02-02 11:45)
DX: Z30.2 Encounter for sterilization (principal); J45.909 Unspecified asthma, uncomplicated; I10 Essential (primary) hypertension; D68.51 Activated protein C resistance
CPT/HCPCS: 58661; 88302; J0131; J1100; J1200; J1885; J2001; J2250; J2405; J2704

== ENCOUNTER → 2022-06-23 00:14 | Outpatient (CLI) | payer MEDICAID, SELFPAY ==
--- NOTE | 2022-06-23 | DI.DEXA_ITS ---
Exam(s) XR DEXA BONE DENSITY W/WO JAMES EXAM: XR DEXA BONE DENSITY W/WO JAMES CLINICAL HISTORY: HYPOPHOSPHATASIA,E83.39 TECHNIQUE: Routine DEXA evaluation of the lumbar spine, hip, or forearm. COMPARISON: No exams were available for comparison FINDINGS: Performed on a Hologic unit. Lateral image: No compression fracture evident. Lumbar Spine total T-score: 0.0 Hip total T-score:1.4 Independent reading at the level of the femoral neck yields at T-score of 0.4. Forearm total T-score: 0.7 IMPRESSION: Bone mineral density measures in the normal range. Fracture risk is low. Note: Any spine fracture indicates 5x risk for subsequent spine fracture and 2x risk for subsequent h ip fracture. World Health Organization criteria for BMD interpretation classify patients: Normal...... T- Score at or above -1.0 Osteopenic... T- Score between -1.0 and -2.5 Osteoporosis... T-Score at or below -2.5
== END ==
PROVIDERS: PCP Family Medicine; Visit Provider Family Medicine
DX: Z13.820 Encounter for screening for osteoporosis (principal); E83.39 Other disorders of phosphorus metabolism
CPT/HCPCS: 77080

== ENCOUNTER 2022-08-14 09:22 | Emergency (ER) | payer MEDICAID, SELFPAY ==
[2022-08-14 09:25] VITALS: BP 167/97; PULSE 113; RESP 16; TEMP 36.6; O2SAT 100
[2022-08-14] MEDS: predniSONE 20 MG TAB 40 MG PO (10:02)
[2022-08-14 10:11] VITALS: BP 132/88; PULSE 86; RESP 18; O2SAT 98
--- NOTE | 2022-08-14 10:20 | W.ED.GENAD ---
Discharge Plan Disposition Patient Disposition: Home Condition: Stable Discharge Details Clinical Impression: Neck pain Primary Care Provider: Maddy Licona V ED Provider: Evangelina Rausch Home Meds and New Rx's Prescriptions: New prednisone 20 mg tablet 40 mg PO DAILY Qty: 8 0RF cyclobenzaprine 10 mg tablet 10 mg PO TID PRNQty: 9 0RF lidocaine [Lidoderm] 5 % adhesive patch,medicated 1 patch topical DAILY Qty: 15 0RF Rx Instructions: leave on most painful area for up to 12 hrs, use only 1 patch per 24 hour period. Continued albuterol sulfate 90 mcg/actuation HFA aerosol inhaler 2 puff inhalation Q6H PRN cetirizine [Zyrtec] 10 mg tablet 10 mg PO DAILY PRN hydroxyzine HCl 50 mg tablet 50 mg PO DAILY PRN Label Comments: TAKE 1/2 TO 1 TABLET BY MOUTH THREE TIMES A DAY NEEDED melatonin 10 mg tablet, sublingual 10 mg PO HS Label Comments: Place 1 tablet under tongue at bedtime oxycodone-acetaminophen 5-325 mg tablet 1 tab PO HS PRN Label Comments: TAKE 1 TABLET BY MOUTH EVERY EVENING NEEDED Discharge Instructions Instructions: Spasmodic Torticollis (ED), Neck Pain (ED) Additional Instructions: Please return immediately to the emergency department if you develop any new or worsening symptoms, if your condition does not improve as expected, or if you become otherwise concerned. It is extremely important that you call soon as possible to make an appointment to be seen in follow-up for this visit by your primary care doctor. Please do not take Flexeril/cyclobenzaprine within 6 hours of taking alcohol, opiate medications, or any other sedating medications. Referrals: Maddy Licona MD [Primary Care Provider] - Discharge Data Discharge Date/Time-TO BE ENTERED AT DEPARTURE: 08/14/22 10:04 Medical Decision Making Concern for muscle spasm, other. Exam/hx at this time is not c/w epidural abscess/hematoma, CVA, mastoiditis, meningitis, retropharyngeal abscess, other deep space abscess of the neck, sepsis, other acute emergent life threatening process. Plan for steroid burst, flexeril rx, lidoderm patch. I had a discussion with Patient regarding return to emergency department precautions, home care, and importance of outpatient follow-up. Pt verbalizes understanding of the plan and is amenable. Patient discharged to home with clear plan for outpatient follow-up. All questions were answered. Disposition decision was made weighing the risks and benefits of hospitalization versus outpatient treatment, the risk for further decompensation, and the patient's wishes. Please Medical Records Medical records reviewed: Yes I reviewed the patient's medical records. HPI General Mode of arrival: ambulatory. Date/Time Provider Initiated Documentation: 08/14/22 09:40. Limitations to Documentation: no limitations. Information obtained by: patient, RN notes reviewed and old records reviewed. HPI Narrative: Emely Javier is a 32-year-old woman with a history of hypertension, right sided piriformis syndrome presenting to the emergency department neck pain. Patient reports that 2 nights ago she slept on her left side and woke up with left-sided neck pain worse with movement. She reports that pain is just under the base of her skull on the left side. She reports that she has also had mild left-sided ear pain since onset of neck pain, no hearing changes, ear pain not currently occurring. She denies any pain in the front of her neck, sore throat, pain with swallowing. She denies any other pain, fevers, cough, shortness of breath, vomiting, diarrhea, numbness, weakness, rash. She reports that she feels otherwise well, no recent illness, normal appetite. She denies any history of IVDU, recent surgeries/procedures, or any recent trauma. Related Data Home Medications Medication Instructions Recorded Confirmed hydroxyzine HCl 50 mg tablet 50 mg PO DAILY PRN 11/25/21 08/14/22 melatonin 10 mg sublingual tablet 10 mg PO HS 11/25/21 08/14/22 albuterol sulfate 90 mcg/actuation 2 puff inhalation Q6H PRN 12/12/21 08/14/22 aerosol inhaler cetirizine 10 mg tablet (Zyrtec) 10 mg PO DAILY PRN 12/12/21 08/14/22 cyclobenzaprine 10 mg tablet 10 mg PO TID PRN #9 tabs 08/14/22 lidocaine 5 % topical patch 1 patch topical DAILY #15 ea 08/14/22 (Lidoderm) oxycodone-acetaminophen 5 mg-325 1 tab PO HS PRN 08/14/22 08/14/22 mg tablet prednisone 20 mg tablet 40 mg PO DAILY #8 tabs 08/14/22 Previous Rx's Medication Instructions Recorded cyclobenzaprine 10 mg tablet 10 mg PO TID PRN #9 tabs 08/14/22 lidocaine 5 % topical patch 1 patch topical DAILY #15 ea 08/14/22 (Lidoderm) prednisone 20 mg tablet 40 mg PO DAILY #8 tabs 08/14/22 Allergies Allergy/AdvReac Type Severity Reaction Status Date / Time tramadol Allergy Severe Other (See Verified 08/14/22 09:29 Comment) latex Allergy yeast Verified 08/14/22 09:29 [facility] Allergy red rash Verified 08/14/22 09:29 General Stated Complaint: Nk/Back Pain AYANA: 4 Review of Systems Narrative: Constitutional: denies fevers Eyes: denies eye pain, vision changes ENT: denies dental pain, sore throat, reports ear pain as per HPI Cardiovascular: denies chest pain, edema Respiratory: denies SOB, cough GI: denies abdominal pain, vomiting, diarrhea : denies flank pain MSK: denies back pain, arthralgias, myalgias, reports left-sided neck pain as per HPI Skin: denies rash Neuro: denies headaches, numbness, weakness PFSH All Active Problems Postoperative state (Acute) Laparoscopic bilateral salpingectomy Depression (Acute) Contraception (Acute) 2009 Mirena IUD. 2013 removed. 2015 restarted OCPs. will use condoms for STI prevention. Asthma (Acute) Hypertension (Chronic) ? NSAID induce nephropathy Factor 5 Leiden mutation, heterozygous (Acute) Unwanted fertility (Acute) Vaginal irritation (Acute) Medical History Candidiasis of vagina While IUD was in place. Resolved after IUD removed. High cholesterol Stress fracture of femur Per pt. has had it for over a year Surgical History Hx of tonsillectomy [place] teeth removed Social History Smoking/Tobacco Use Status: Former Tobacco Use Quit Date: 08/20/08 Smoking risk assessment performed?: Yes Alcohol Intake: current Alcohol Intake frequency: a few times a week Alcohol type: beer, wine and hard liquor Drug use: Daily Substance use type: marijuana Details: states heavy marijuana smoker. last smoked 02.01.22 current occupation: [employer] in [place] Do you feel safe at home: Yes Do you feel safe in your relationship?: Yes History History 0 Para Hx # Term Pregnancies Multiple births Hx # Pregnancies Ectopic pregnancies AB induced Hx Number of Living Children AB spontaneous Exam Narrative Exam Narrative: Constitutional: well and [id number], pleasant, conversing normally HENT: head atraumatic/normocephalic/normal inspection, mucous membranes moist, TMs and canals normal b/l Eyes: conjunctiva normal, sclera normal, pupils 3mm b/l Neck: no stridor, normal ROM, pain with lateral rotation, trachea midline, left SCM TTP that reproduces pain just inferior to mastoid, no mastoid TTP b/l, no cervical spine TTP, no rash, no edema, no post/pre-auricular TTP Chest: normal inspection Resp: normal work of breathing, speaking in full sentences Cardio: normal rate, normal rhythm Back: normal inspection, no rash, no thoracic spine TTP Skin: warm, dry, normal color, no rash Neuro: alert, not altered, grossly non-focal, normal tone Ext: no edema Psych: normal mood, normal affect, normal behavior Course Vital Signs Vital signs: Vital Signs Temperature 36.6 C 08/14/22 09:25 Pulse 113 H 08/14/22 09:25 Respiratory Rate 16 08/14/22 09:25 Blood Pressure 167/97 H 08/14/22 09:25 Pulse Oximetry 100 08/14/22 09:25 Temperature 36.6 C 08/14/22 09:25 Temperature Source Temporal Artery Scan 08/14/22 09:25 Pulse 86 08/14/22 10:11 Respiratory Rate 18 08/14/22 10:11 Respiratory Effort Non-Labored 08/14/22 09:27 Blood Pressure 132/88 08/14/22 10:11 Blood Pressure Position Sitting 08/14/22 09:25 Pulse Oximetry 98 08/14/22 10:11 Oxygen Delivery Method Room Air 08/14/22 09:25 Oxygen Flow Rate 0 08/14/22 09:25 Pain Level 10 08/14/22 09:27 PAWSS Have you Been Recently Intoxicated or Drunk Within the Last 30 days?: No Have you Ever Experienced Previous Episodes of Alcohol Withdrawal?: No Have you ever Experienced Withdrawal Seizures?: No Have you ever Experienced Delirium Tremens(DT)s?: No Have you ever undergone Alcohol Rehabilitation Treatment (i.e, inpt ot outpatient treatment programs)?: No Have you ever Experienced Blackouts?: No Have you ever Combined Alcohol with other Downers within the last 90 days?: No Have you ever Combined Alcohol with any other Substance of Abuse during the last 90 days?: No Result: 0
== END 2022-08-14 10:04 | disposition home or self-care (01) ==
PROVIDERS: Emergency Provider Student in an Organized Health Care Education/Training Program; PCP Family Medicine
DX: M54.2 Cervicalgia (principal)
CPT/HCPCS: 99283; J7512

== ENCOUNTER 2023-09-04 10:36 | Outpatient (REF) | payer MEDICAID, SELFPAY ==
[2023-09-04 15:24] LABS: Abs Immature Grans 0.02 10^3/uL (0.0-0.06); Absolute Basophil Count 0.07 10^3/uL (0.0-0.2); Absolute Eosinophil Count 0.51 10^3/uL (0.0-0.7); Absolute Lymphocyte Count 3.07 10^3/uL (1.2-3.4); Absolute Monocyte Count 0.66 10^3/uL (0.1-0.8); Absolute Neutrophil Count 4.08 10^3/uL (1.2-6.7); Basophils % 0.8; Eosinophils % 6.1; HGB 12.7 g/dL (11.2-15.7); Immature Grans % 0.2; Lymphocytes % 36.5; MCH 29.1 pg (27.0-33.0); MCHC 32.6 % (32.0-36.0); MCV 89 fL (80-95); MPV 9.2 fL (8.0-11.0); Monocytes % 7.8; Neutrophils % 48.6; Platelet Count 320 10^3/uL (130-400); RBC 4.36 10^6/uL (3.93-5.22); RDW 13.1 % (11.7-14.6); RDW-SD 43.4 fL; WBC 8.41 10^3/uL (4.4-10.8)
[2023-09-04 15:50] LABS: ALT 19 U/L (14-59); AST 13 U/L (15-37); Alkaline Phosphatase 29 U/L (46-116); BUN 10 mg/dL (7-18); Bilirubin, Total 0.2 mg/dL (0.2-1.0); CREATININE 0.7 mg/dL (0.55-1.02); Calcium 9.5 mg/dL (8.5-10.1); Calculated LDL 151 mg/dL (<100); Chloride 106 mmol/L (98-107); Cholesterol 232 mg/dL (<200); Estimated GFR 117.77 (mL/min/1.73m2); Glucose 84 mg/dL (74-106); HDL Cholesterol 60 mg/dL (40-60); Potassium 4.8 mmol/L (3.5-5.1); Sodium 140 mmol/L (136-145); TSH (W/Ref FT4) 0.94 uIU/mL (0.36-3.74); Total Protein 7.5 g/dL (6.4-8.2); Triglyceride 107 mg/dL (<150)
== END 2023-09-04 10:37 | disposition home or self-care (01) ==
LOC: NCHCN 10:36
PROVIDERS: PCP Family Medicine; Visit Provider Family Medicine
DX: Z00.00 Encounter for general adult medical examination without abnormal findings (principal)
CPT/HCPCS: 80053; 80061; 84443; 85025

== ENCOUNTER 2024-04-30 17:26 | Outpatient (REF) | payer SELFPAY ==
[2024-04-30 19:50] LABS: Abs Immature Grans 0.14 10^3/uL (0.0-0.06); Absolute Eosinophil Count 0.15 10^3/uL (0.0-0.7); Absolute Lymphocyte Count 2.72 10^3/uL (1.2-3.4); Absolute Neutrophil Count 10.97 10^3/uL (1.2-6.7); Basophils % 0.7 %; HCT 42.9 % (36.0-46.0); HGB 13.7 g/dL (11.2-15.7); Immature Grans % 0.9 %; Lymphocytes % 18.1 %; MCH 29.3 pg (27.0-33.0); MCHC 31.9 % (32.0-36.0); MCV 92 fL (80-95); MPV 9.3 fL (8.0-11.0); Monocytes % 6.4 %; Neutrophils % 72.9 %; Platelet Count 345 10^3/uL (130-400); RBC 4.68 10^6/uL (3.93-5.22); RDW 13.7 % (11.7-14.6); RDW-SD 46.6 fL; WBC 15.05 10^3/uL (4.4-10.8)
[2024-04-30 19:53] LABS: Absolute Basophil Count 0.11 10^3/uL (0.0-0.2); Absolute Monocyte Count 0.96 10^3/uL (0.1-0.8)
[2024-04-30 20:56] LABS: INR 6.1 (0.9-1.1); PTT Activated > 155.0 sec (23.6-32.8); Prothrombin Time 52.1 sec (9.1-11.1)
== END 2024-04-30 17:27 | disposition home or self-care (01) ==
LOC: NCHCN 17:26
PROVIDERS: PCP Family Medicine; Visit Provider Nurse Practitioner Family
DX: R23.3 Spontaneous ecchymoses (principal)
CPT/HCPCS: 85025; 85610; 85730

== ENCOUNTER 2024-05-22 19:43 | Outpatient (REF) | payer SELFPAY | END 2024-05-22 19:44 | disposition home or self-care (01) | LOC: NCHCN 19:43 | PROVIDERS: PCP Family Medicine; Visit Provider Family Medicine | DX: N39.0 Urinary tract infection, site not specified (principal); R82.89 Other abnormal findings on cytological and histological examination of urine | CPT/HCPCS: 87086 ==

== ENCOUNTER 2024-06-11 08:14 | Emergency (ER) | payer SELFPAY ==
[2024-06-11 08:17] VITALS: BP 140/90; PULSE 80; RESP 16; TEMP 36.2; O2SAT 98
--- NOTE | 2024-06-11 08:20 | ED.GENADUL_ITS ---
Discharge Plan Disposition Patient Disposition: Home Condition: Stable Discharge Details Clinical Impression: Cellulitis of left middle finger Primary Care Provider: Maddy Licona V ED Provider: Damien Nascimento Home Meds and New Rx's Prescriptions: New cephalexin 500 mg capsule 500 mg PO QID 7 Days Qty: 28 0RF Continued albuterol sulfate 90 mcg/actuation HFA aerosol inhaler 2 puff inhalation Q6H PRN cetirizine [Zyrtec] 10 mg tablet 10 mg PO DAILY PRN hydroxyzine HCl 50 mg tablet 50 mg PO DAILY PRN Patient Comments: TAKE 1/2 TO 1 TABLET BY MOUTH THREE TIMES A DAY NEEDED melatonin 10 mg tablet, sublingual 10 mg PO HS Patient Comments: Place 1 tablet under tongue at bedtime oxycodone-acetaminophen 5-325 mg tablet 1 tab PO HS PRN Patient Comments: TAKE 1 TABLET BY MOUTH EVERY EVENING NEEDED cyclobenzaprine 10 mg tablet 10 mg PO TID PRNQty: 9 0RF lidocaine [Lidoderm] 5 % adhesive patch,medicated 1 patch topical DAILY Qty: 15 0RF Rx Instructions: leave on most painful area for up to 12 hrs, use only 1 patch per 24 hour period. Discharge Instructions Instructions: Cephalexin, Cellulitis (Skin Infection), Adult ED Additional Instructions: You were seen in the emergency department for your left third finger swelling from a pricked by a thorn causing likely cellulitis. I have prescribed you an antibiotic called cephalexin for this infection. Please take Tylenol and ibuprofen as needed for pain, you may also elevate and ice the finger to help with swelling. You are at risk for developing flexor tenosynovitis which would be an involuntary flexion and pain over the finger with an infection in the tendon sheath. This requires IV antibiotics, please monitor your condition for this. He also refused a tetanus vaccination, tetanus is a dangerous condition and this pathogen resides in soil making it a moderate risk for your infection. This is a potentially fatal or limb threatening infection if it develops in this highly recommended that you receive this preventative vaccine but you refused, you are leaving AGAINST MEDICAL ADVICE for this reason. Referrals: Maddy Licona MD [Primary Care Provider] - HPI General Date/Time Provider Initiated Documentation: 06/11/24 08:20 . HPI Narrative: 34 year-old female presents to ED today by POV/ambulating with a chief complaint of L third finger swelling after a minor puncture from a thorny plant yesterday. Quality described as swelling in the proximal L third phalange, some decreased ROM, and pain at the base of the finger, no radiation to red streaking, ordonez erythema, numbness distally, purulent drainage, fever. Severity is described as mild to moderate. Palliating factors include nothing specific attempted. Provoking factors include nothing specific. Events leading up to the incident/Associated Symptoms: Patients' Tdap is UTD. Patient not anticoagulated. Related Data Home Medications ?Medication ?Instructions ?Recorded ?Confirmed hydroxyzine HCl 50 mg tablet 50 mg PO DAILY PRN 11/25/21 06/11/24 melatonin 10 mg sublingual tablet 10 mg PO HS 11/25/21 06/11/24 albuterol sulfate 90 mcg/actuation 2 puff inhalation Q6H PRN 12/12/21 06/11/24 aerosol inhaler cetirizine 10 mg tablet (Zyrtec) 10 mg PO DAILY PRN 12/12/21 06/11/24 cyclobenzaprine 10 mg tablet 10 mg PO TID PRN #9 tabs 08/14/22 06/11/24 lidocaine 5 % topical patch 1 patch topical DAILY #15 ea 08/14/22 06/11/24 (Lidoderm) oxycodone-acetaminophen 5 mg-325 1 tab PO HS PRN 08/14/22 06/11/24 mg tablet cephalexin 500 mg capsule 500 mg PO QID cellulitis 7 days 06/11/24 #28 caps Previous Rx's ?Medication ?Instructions ?Recorded cyclobenzaprine 10 mg tablet 10 mg PO TID PRN #9 tabs 08/14/22 lidocaine 5 % topical patch 1 patch topical DAILY #15 ea 08/14/22 (Lidoderm) cephalexin 500 mg capsule 500 mg PO QID cellulitis 7 days 06/11/24 #28 caps Allergies Allergy/AdvReac Type Severity Reaction Status Date / Time tramadol Allergy Severe Other (See Verified 06/11/24 08:21 Comment) latex Allergy yeast Verified 06/11/24 08:21 [facility] Allergy red rash Verified 06/11/24 08:21 General AYANA: 4 Review of Systems All systems reviewed & are unremarkable except as noted in HPI and below Exam Narrative Exam Narrative: GENERAL APPEARANCE: Well-nourished, non-toxic, awake and alert, atraumatic, no acute distress. SKIN: Warm, pink, dry, intact, without rashes/lesions/ulcerations. HEAD: Normocephalic, atraumatic, normal hair distribution for gender/age. EYES: Normal conjunctiva, no exudates on lids/lashes. ENT: Nares patent, no circumoral cyanosis, no facial swelling NECK: Supple, trachea midline, painless cervical ROM. LUNGS/CHEST: Non-labored respirations, normal A/P diameter, symmetrical expansion, no chest wall deformity HEART (CV/PV): Regular rate, no peripheral edema, no JVD. ABDOMEN: Soft, non-distended, no guarding. MSK: Normal ROM, no swelling/deformity to bilateral UEs or LEs, moving all extremities without weakness, no cyanosis, spine midline without tenderness, normal curvature, mild swelling to the proximal phalange E of the left middle finger, brisk capillary refill and sensation intact distal, no involuntary flexion, no pain with passive range of motion, left radial pulse 2+, no ordonez erythema NEURO: Mental Status AAOx4 - alert to person, place, time, events No facial droop, no forehead involvement. Motor: No focal weakness - strength 5/5 in bilateral UEs and LEs, proximal and distal, symmetric. Sensory: sensation intact to light touch globally. Gait normal: patient ambulated without ataxia into ED room. PSYCH: euthymic, cooperative, pleasant, appropriate speech Medical Decision Making This dictation utilizes [id number] dictation software and may contain unedited grammatical errors. 34 year-old female presents to ED today by POV/ambulating with a chief complaint of L third finger swelling after a minor puncture from a thorny plant yesterday. Quality described as swelling in the proximal L third phalange, some decreased ROM, and pain at the base of the finger, no radiation to red streaking, ordonez erythema, numbness distally, purulent drainage, fever. Severity is described as mild to moderate. Palliating factors include nothing specific attempted. Provoking factors include nothing specific. Events leading up to the incident/Associated Symptoms: Patients' Tdap is UTD. Patients' medical history: High cholesterol, asthma, hypertension, factor V Leiden mutation. Family and social history: Noncontributory. Pertinent exam findings / vital signs include mild swelling to the proximal phalange E of the left middle finger, brisk capillary refill and sensation intact distal, no involuntary flexion, no pain with passive range of motion, left radial pulse 2+, no ordonze erythema. Differential / pathologies of concern include cellulitis, possible early deep flexor tenosynovitis, tetanus exposure. Diagnostic studies of: -None. Interventions of: -Rx for cephalexin, patient refused Tdap. ED Course/Assessment/Plan: 34-year-old female presents after a break from a thorn paul having some left middle finger swelling, no ordonez erythema, no purulent drainage, I am suspicious for early cellulitis versus flexor tenosynovitis, advised on updating her tetanus as tetanus does live in soil. Patient refused tetanus shot after discussion of risks of undiagnosed tetanus, I did provide her with a course of cephalexin for cellulitis and counseled on return for signs of worsening despite treatment, patient left AMA. Findings not consistent with severe cellulitis, septic arthritis, current flexor tenosynovitis. Disposition of cellulitis of left middle finger. Patient verbalized understanding of the plan and return to ED criteria and engaged in shared decision making. Medical Records Medical records reviewed: Yes I reviewed the patient's medical records. Quality:SDOH Health Related Social Needs: No Data to Display PFSH All Active Problems (Updated 06/11/24 @ 08:40 by JOSEPHINE Samuel) Cellulitis of left middle finger (Acute) Postoperative state (Acute) Laparoscopic bilateral salpingectomy Depression (Acute) Contraception (Acute) 2009 Mirena IUD. 2013 removed. 2015 restarted OCPs. will use condoms for STI prevention. Asthma (Acute) Hypertension (Chronic) ? NSAID induce nephropathy Factor 5 Leiden mutation, heterozygous (Acute) Unwanted fertility (Acute) Vaginal irritation (Acute) Medical History Candidiasis of vagina While IUD was in place. Resolved after IUD removed. High cholesterol Stress fracture of femur Per pt. has had it for over a year Surgical History Hx of tonsillectomy [place] teeth removed Social History Smoking/Tobacco Use Status: Former Tobacco Use Quit Date: 08/20/08 Smoking risk assessment performed?: Yes Alcohol Intake: current Alcohol Intake frequency: a few times a week Alcohol type: beer, wine and hard liquor Drug use: Daily Substance use type: marijuana Details: states heavy marijuana smoker. last smoked 02.01.22 Housing: house current occupation: [employer] in [place] Do you feel safe at home: Yes Do you feel safe in your relationship?: Yes History History 0 Para Hx # Term Pregnancies Multiple births Hx # Pregnancies Ectopic pregnancies AB induced Hx Number of Living Children AB spontaneous
== END 2024-06-11 08:56 | disposition home or self-care (01) ==
LOC: ER 09:08
PROVIDERS: Emergency Provider Physician Assistant; PCP Family Medicine
DX: L03.012 Cellulitis of left finger (principal)
CPT/HCPCS: 99283

== ENCOUNTER 2024-07-03 13:08 | Outpatient (CLI) | payer SELFPAY ==
[2024-07-03 15:24] LABS: Abs Immature Grans 0.04 10^3/uL (0.0-0.06); Absolute Basophil Count 0.05 10^3/uL (0.0-0.2); Absolute Eosinophil Count 0.15 10^3/uL (0.0-0.7); Absolute Lymphocyte Count 1.64 10^3/uL (1.2-3.4); Absolute Monocyte Count 0.77 10^3/uL (0.1-0.8); Absolute Neutrophil Count 5.84 10^3/uL (1.2-6.7); Basophils % 0.6 %; Eosinophils % 1.8 %; HCT 41.1 % (36.0-46.0); HGB 13.5 g/dL (11.2-15.7); Immature Grans % 0.5 %; Lymphocytes % 19.3 %; MCH 29.5 pg (27.0-33.0); MCHC 32.8 % (32.0-36.0); MCV 90 fL (80-95); MPV 8.8 fL (8.0-11.0); Monocytes % 9.1 %; Neutrophils % 68.7 %; Platelet Count 252 10^3/uL (130-400); RBC 4.57 10^6/uL (3.93-5.22); RDW 12.9 % (11.7-14.6); RDW-SD 42.5 fL; WBC 8.49 10^3/uL (4.4-10.8)
[2024-07-03 15:38] LABS: INR 1.1 (0.9-1.1); PTT Activated 28.5 sec (23.6-32.8); Prothrombin Time 10.8 sec (9.1-11.1)
[2024-07-03 17:07] LABS: ALT 21 U/L (14-59); AST 18 U/L (15-37); Albumin 4.1 g/dL (3.4-5.0); Alkaline Phosphatase 45 U/L (46-116); Anion Gap 10.7 mmol/L (3-11); BUN 11 mg/dL (7-18); Bilirubin, Total 0.27 mg/dL (0.2-1.0); CO2 26.3 mmol/L (21.0-32.0); CREATININE 0.8 mg/dL (0.55-1.02); Calcium 9.2 mg/dL (8.5-10.1); Chloride 101 mmol/L (98-107); Estimated GFR 99.71 (mL/min/1.73m2); Glucose 90 mg/dL (74-106); Potassium 3.4 mmol/L (3.5-5.1); Sodium 138 mmol/L (136-145); TSH (W/Ref FT4) 1.44 uIU/mL (0.36-3.74); Total Protein 8.3 g/dL (6.4-8.2)
[2024-07-03 17:34] LABS: LDH 214 U/L (81-234)
[2024-07-03 23:03] LABS: Hepatitis C Ab w Rflx HCV PCR Negative (Negative)
[2024-07-04 12:11] LABS: Factor 8 Assay 106 % (50-150); Von Willebrand Factor Antigen 155 % (50-185)
[2024-07-08 07:04] LABS: Vitamin K1 0.37 ng/mL (0.10-2.20)
== END 2024-07-03 13:09 | disposition home or self-care (01) ==
LOC: LBO 13:11
PROVIDERS: PCP Family Medicine; Visit Provider Family Medicine
DX: R58 Hemorrhage, not elsewhere classified (principal); D72.829 Elevated white blood cell count, unspecified
CPT/HCPCS: 36415; 80053; 85246; 86803; 83615; 84443; 84597; 85025; 85240; 85610; 85730

== ENCOUNTER 2024-10-14 09:08 | Emergency (ER) | payer MEDICAID, SELFPAY ==
[2024-10-14 09:27] VITALS: BP 153/106; PULSE 113; RESP 20; TEMP 36.7; O2SAT 99
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
[2024-10-14] MEDS: ACETAMINOPHEN 1,000 MG/100 ML BAG 400 MG IVPB (10:28)
[2024-10-14] MEDS: Ondansetron 4 MG/2 ML VIAL IVP (10:28)
[2024-10-14] MEDS: ALPRAZolam 0.25 MG TAB 0.5 MG PO (10:31)
[2024-10-14 10:34] LABS: Abs Immature Grans 0.07 10^3/uL (0.0-0.06); Absolute Basophil Count 0.06 10^3/uL (0.0-0.2); Absolute Eosinophil Count 0.06 10^3/uL (0.0-0.7); Absolute Lymphocyte Count 2.16 10^3/uL (1.2-3.4); Absolute Monocyte Count 0.69 10^3/uL (0.1-0.8); Basophils % 0.5 %; Eosinophils % 0.5 %; HCT 41.6 % (36.0-46.0); HGB 13.5 g/dL (11.2-15.7); Immature Grans % 0.6 %; MCHC 32.5 % (32.0-36.0); MCV 89 fL (80-95); MPV 8.7 fL (8.0-11.0); Monocytes % 6.1 %; Neutrophils % 73.3 %; Platelet Count 360 10^3/uL (130-400); RBC 4.66 10^6/uL (3.93-5.22); RDW 13.2 % (11.7-14.6); RDW-SD 43.1 fL; WBC 11.36 10^3/uL (4.4-10.8)
[2024-10-14 10:35] LABS: Absolute Neutrophil Count 8.33 10^3/uL (1.2-6.7)
[2024-10-14 10:43] LABS: INR 1.1 (0.9-1.1); Prothrombin Time 11.2 sec (9.1-11.1)
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
[2024-10-14 11:04] LABS: ALT 20 U/L (14-59); AST 18 U/L (15-37); Albumin 4.4 g/dL (3.4-5.0); Alkaline Phosphatase 42 U/L (46-116); Anion Gap 11.3 mmol/L (3-11); BUN 12 mg/dL (7-18); CO2 24.7 mmol/L (21.0-32.0); CREATININE 0.7 mg/dL (0.55-1.02); Calcium 9.6 mg/dL (8.5-10.1); Chloride 104 mmol/L (98-107); Estimated GFR 117.04 (mL/min/1.73m2); Glucose 97 mg/dL (74-106); Potassium 3.8 mmol/L (3.5-5.1); Sodium 140 mmol/L (136-145); Total Protein 8.6 g/dL (6.4-8.2)
[2024-10-14 11:14] LABS: HCG Qual (Serum) Negative
[2024-10-14] MEDS: Omnipaque 350 MG/ML 100 ML BTL IJ (11:43)
[2024-10-14] MEDS: Normal Saline - Diluent 50 ML VIAL IJ (11:44)
[2024-10-14 12:32] VITALS: BP 116/71; PULSE 80
== END 2024-10-14 12:42 | disposition home or self-care (01) ==
PROVIDERS: Emergency Provider Emergency Medicine; PCP Family Medicine
DX: S00.83XA Contusion of other part of head, initial encounter (principal); S30.1XXA Contusion of abdominal wall, initial encounter; S40.022A Contusion of left upper arm, initial encounter; Y04.8XXA Assault by other bodily force, initial encounter
CPT/HCPCS: 74177; 80053; 96365; 96375; 99285; 70450; 71260; 84703; 85025; 85610; 99284; J0131; J2405; J3490

== ENCOUNTER 2024-11-18 13:49 | Outpatient (REF) | payer MEDICAID, SELFPAY ==
[2024-11-19 12:19] LABS: Chlamydia Result Negative (Negative); GC Result Negative (Negative)
== END 2024-11-18 13:50 | disposition home or self-care (01) ==
LOC: LBN 13:49
PROVIDERS: PCP Family Medicine; Visit Provider Obstetrics & Gynecology
DX: N89.8 Other specified noninflammatory disorders of vagina (principal)
CPT/HCPCS: 87491; 87591; 87480; 87510; 87660

== ENCOUNTER 2025-02-19 13:56 | Outpatient (REF) | payer MEDICAID, SELFPAY | END 2025-02-19 13:57 | disposition home or self-care (01) | LOC: NCHCN 13:56 | PROVIDERS: PCP Family Medicine; Visit Provider Family Medicine | DX: B37.31 Acute candidiasis of vulva and vagina (principal) | CPT/HCPCS: 87480; 87510; 87660 ==

== ENCOUNTER 2025-07-02 17:01 | Outpatient (REF) | payer MEDICAID, SELFPAY | END 2025-07-02 17:02 | disposition home or self-care (01) | LOC: NCHCN 17:01 | PROVIDERS: PCP Family Medicine; Visit Provider Family Medicine | DX: M25.551 Pain in right hip (principal); N89.8 Other specified noninflammatory disorders of vagina | CPT/HCPCS: 80361; 80362; 80365; 87480; 87510; 87660 ==

== ENCOUNTER 2025-07-22 16:32 | Outpatient (REF) | payer MEDICAID, SELFPAY ==
--- NOTE | 2025-07-22 15:00 | PAPFT_PTH ---
PATIENT: Emely Javier LOC: [facility] U#:[id number] AGE/SX: 35/F ROOM: RE07/22/[address]: Mary Cruz : 1990 BED: DIS: 07/22/2025 SPEC #: [id number] RECD: 07/22/25 18:36 STATUS: ANUM REQ #: [id number] OLEG: 07/22/25 15:[address]: Mary Cruz [facility]PT[facility] Cytology RECD BY: Aurea Dixon ENTERED: 07/22/25 18:36 SP TYPE: PAPFT OTHR DR: Maddy Licona V Tissues: 1 - CX/ENDOCX FOR PAP SMEARS Procedures: PAP THIN PREP/[facility] Screening HPV DNA PROBE Comments: (HPV 16 & 18/45) (CHLAMYDIA/GC)
[2025-07-23 12:16] LABS: Chlamydia Result Negative (Negative); GC Result Negative (Negative)
== END 2025-07-22 16:33 | disposition home or self-care (01) ==
LOC: LBN 16:32
PROVIDERS: PCP Family Medicine; Visit Provider Advanced Practice Midwife
DX: N89.8 Other specified noninflammatory disorders of vagina (principal); Z12.4 Encounter for screening for malignant neoplasm of cervix
CPT/HCPCS: 87491; 87591; 88142; 87480; 87510; 87624; 87660